=== PATIENT | male | born 1985 | race Caucasian/White ===

== ENCOUNTER → 2019-01-28 | Outpatient (CLI) | payer BC ==
--- NOTE | 2019-01-29 16:28 | MR ---
Right wrist MRI HISTORY: Right wrist pain radial side Multiplanar multisequence imaging through the right wrist. No comparisons There is some motion on the exam. There is fluid signal present along the extensor pollicis brevis te ndon and abductor pollicis longus tendon.. There is some subcutaneous edema at this level. Bone marro w signal is maintained. Flexor and extensor tendons are intact. The triangular fibrocartilage, scapho lunate and lunotriquetral ligaments thought to be intact. No fracture or dislocation. No sizable join t effusion. Probable geode present within the proximal third metacarpal. Articular cartilage is thoug ht to be maintained. IMPRESSION: Tendinosis at the radial side tendons as described.
== END | disposition home or self-care (01) ==
LOC: RADMRIMAIN 14:53
PROVIDERS: ATTEND Family Medicine
DX: M67.833 Other specified disorders of tendon, right wrist (principal)

== ENCOUNTER → 2021-06-15 | Outpatient (CLI) | payer OTHER ==
--- NOTE | 2021-06-15 11:58 | XR ---
EXAMINATION TYPE: XR KUB DATE OF EXAM: 06/15/2021 HISTORY: Pain Comparison: None.Single KUB is submitted for interpretation. Findings: Right renal calculi: 1.4 cm right renal calculus. Right ureteral calculi: None Visualized. Left renal calculi: None Visualized. Left ureteral calculi: None Visualized. Pelvic calcifications: None Visualized. Bowel gas pattern is unremarkable. No free air. No mass effects. IMPRESSION: 1. 1.4 cm right renal calculus.
== END | disposition home or self-care (01) ==
LOC: RADXRMAIN 11:28
PROVIDERS: ATTEND Nurse Practitioner
DX: N20.0 Calculus of kidney (principal)
CPT/HCPCS: 74018

== ENCOUNTER → 2021-07-29 | Outpatient (CLI) | payer OTHER ==
--- NOTE | 2021-07-29 18:27 | CT ---
EXAMINATION TYPE: CT abdomen pelvis wo con DATE OF EXAM: 07/29/2021 COMPARISON: None HISTORY: Right flank pain. CT DLP: 904 mGycm Examination of the solid and hollow viscera is limited given the lack of contrast. FINDINGS: LUNG BASES: No evidence for nodule. No evidence for infiltrate. LIVER/GB: The gallbladder is unremarkable. No space-occupying hepatic lesion. PANCREAS: No pancreatic mass identified. No inflammatory process seen. SPLEEN: No evidence for splenomegaly. No intrasplenic lesions seen. ADRENALS: No adrenal nodules identified. No evidence for thickening. KIDNEYS: No evidence for renal mass. Large nonobstructing calculus lower pole right kidney measuring 1.3 cm. Extrarenal pelvis on the right. No left-sided calculi evident. BOWEL: Appendix has a normal appearance. No evidence of bowel obstruction. No inflammatory process. Lymph nodes: No evidence for adenopathy greater than 1 cm. Abdominal aorta: Atheromatous changes seen. No evidence for aneurysm. Genital organs: No significant abnormality. Other: No significant abnormality. IMPRESSION: Large nonobstructing calculus lower pole right kidney measuring 1.3 cm.
== END | disposition home or self-care (01) ==
LOC: RADCTMAIN 17:04
PROVIDERS: ATTEND Family Medicine
DX: N20.0 Calculus of kidney (principal)
CPT/HCPCS: 74176

== ENCOUNTER → 2021-09-08 | Outpatient (CLI) | payer OTHER ==
--- NOTE | 2021-09-09 06:55 | XR ---
EXAMINATION TYPE: XR lumbar spine 2 or 3V DATE OF EXAM: 09/08/2021 CLINICAL HISTORY: Pain. Recent injury with increased pain. TECHNIQUE: Frontal and lateral images of the lumbar spine are obtained. COMPARISON: CT abdomen and pelvis July 29, 2021 FINDINGS: There are 5 lumbar type vertebral bodies identified. The lumbar spine shows straightened alignment . Bilateral pars defect L4 level with subtle slight grade 1 anterolisthesis L4 on L5. Moder ate to severe disc space narrowing with endplate sclerosis and vacuum disc phenomenon L4-L5 level oth erwise vertebral body heights and disc space heights are maintained. There may be now 2 adjacent righ t renal calculi near 1.4 cm in size at L2 level midpole level right kidney. IMPRESSION: As above.
== END | disposition home or self-care (01) ==
LOC: RADXRMAIN 17:15
PROVIDERS: ATTEND Family Medicine
DX: M51.36 Other intervertebral disc degeneration, lumbar region (principal); M43.16 Spondylolisthesis, lumbar region
CPT/HCPCS: 72100

== ENCOUNTER → 2021-10-21 | Outpatient (CLI) | payer OTHER ==
--- NOTE | 2021-10-22 23:25 | MR ---
EXAMINATION TYPE: MR lumbar spine wo con DATE OF EXAM: 10/21/2021 COMPARISON: Lumbar spine x-ray September 08, 2021. CT abdomen and pelvis July 29 2021 HISTORY: Lumbago with right-sided sciatica TECHNIQUE: Multiplanar, multisequence imaging of the lumbar spine is performed without IV contrast. FINDINGS: Sagittal images of the lumbar spine show vertebral body heights to remain satisfactory. Per sistent grade 1 anterolisthesis L4 on L5 and grade 1 retrolisthesis L5 on S1. Bilateral pars defect L 4 level seen better on CT but confirmed on MRI. Multilevel disc desiccation with relative sparing of L3-L4 level. [id number] disc space narrowing with heterogeneous Modic type I endplate changes and moderate anterior spurring L4-L5 level. The conus medullaris is normal in position and signal e nding at T12-L1 disc space level. Axial images show T12-L1 and L1-L2 levels to appears within normal limits. Axial images at L2-L3 level mild broad disc bulge minimally effacing the anterior thecal sac. Mild fa cet arthropathy bilaterally. Axial images at L3-L4 level show mild facet arthropathy bilaterally. Axial images at L4-L5 level shows spondylolisthesis with moderate facet degenerative changes bilatera lly. There is moderate broad-based posterior disc protrusion mildly facing anterior thecal sac. There is severe right-sided neural foraminal narrowing encroaching on exiting right L4 nerve sagittal imag es 12 through 14. There is [id number] left-sided neural foraminal narrowing. Axial images at L5-S1 level show mild facet arthropathy. Spinal canal is preserved. Bilateral neural foramina are patent. 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 Spondylolisthesis and degenerative changes contribute to severe right-sided neural foraminal narr owing and right L4 nerve effacement as detailed above.
== END | disposition home or self-care (01) ==
LOC: RADMRIMAIN 13:26
PROVIDERS: ATTEND Family Medicine
DX: M47.816 Spondylosis without myelopathy or radiculopathy, lumbar region (principal); M43.16 Spondylolisthesis, lumbar region; M99.73 Connective tissue and disc stenosis of intervertebral foramina of lumbar region; M51.26 Other intervertebral disc displacement, lumbar region
CPT/HCPCS: 72148